=== PATIENT | male | born 1950 | race Caucasian/White ===

== ENCOUNTER 2016-09-16 07:33 | Day surgery (SDC) | payer MEDICARE, OTHER ==
[2016-09-13 14:59] LABS: BUN (BLOOD UREA NITROGEN) 6 MG/DL (6-23); CALCIUM, SERUM 8.9 MG/DL (8.5-10.4); CHLORIDE, SERUM 106 MMOL/L (96-112); CO2 (CARBON DIOXIDE) 31 MMOL/L (24-34); CREATININE 0.78 MG/DL (0.70-1.30); GFR AFRICAN AMERICAN 111 ML/MIN (>=60); GFR NON AFRICAN AMERICAN 96 ML/MIN (>=60); GLUCOSE, SERUM 87 MG/DL (60-99); POTASSIUM, SERUM 3.6 MMOL/L (3.5-5.3); SODIUM, SERUM 142 MMOL/L (135-148)
[2016-09-13 18:20] LABS: HEMATOCRIT 38.6 % (40.0-51.0); HEMOGLOBIN 12.4 g/dL (13.6-17.8)
--- NOTE | ~2016-09-16 | OP ---
Record Of Operation [facility] [address] [place]. [address] NAME: LAURA ALDANA : 54 STATUS : REG [facility]#: [id number] AGE: 65 ADM/REG DATE : 09/16/16 MR#: [id number] REPORT SERV DATE: 09/16/16 DICTATED BY: BENNY JOSEPH DATE: 09/16/16 REPORT STATUS : Draft TRANSCRIBED BY: MODL DATE: 09/16/16 DATE OF PROCEDURE: 09/16/2016 PREOPERATIVE DIAGNOSIS: Epilepsy. POSTOPERATIVE DIAGNOSIS: Epilepsy. OPERATION: VNS generator change and programming. SUMMARY: After adequate general anesthesia, prep and drape, an incision was made directly over the old incision on the left upper chest and carried down through the skin and subcutaneous tissue. The old generator was dissected free carefully from the surrounding tissue and removed from the incision. The leads appeared intact. The generator was then disconnected and the new generator was connected with three clicks. The pocket was enlarged because this was a larger generator. Small portion of the old sac around the VNS was removed. The VNS was then interrogated successfully to 1 milliampere impedance was okay. It was then placed back in the pouch and again interrogated successfully and impedance was okay in 1 milliamp. This was then turned off to 0. After adequate irrigation, the generator was sutured to the anterior chest wall with 2-0 Prolene suture. Subcutaneous tissue and skin was closed in routine fashion after injection of 0.5% Marcaine without. The patient tolerated procedure well and taken to recovery room in satisfactory condition. AMENA/ODESSA Benny Joseph M.D. / [id number] CC: Benny Joseph M.D.
[~2016-09-16 07:33] MED LIST: ADVAIR100 INH; ADVAIR250 INH; BISR PR; DEPAKOT500 PO; DSS PO; DUONEB INH; FLONASE NAS; FOLIC PO; KEPPRA1000 MG PO; KEPPRA500 PO; KLONO1 PO; KLONO5 PO; LEVAQUIN750 MG PO; MIRALAXPKT PO; MULTIPLE VIT PO; MULTIVIT/MIN PO; ORGAN-I NR200 MG PO; OS500 PO; PRILO PO; PROAIR HFA INH; PROTONIX PO; RISP0.5 PO; RISPERDAL0.25 MG PO; SPIRIVA INH; STERAPRED DS10 MG; TRICOR145 PO; TRILEP300 PO; VIMPAT100 MG PO; VIMPAT200 MG PO
== END 2016-09-16 12:16 | disposition home or self-care (01) ==
LOC: SDC 07:33
PROVIDERS: Specialist
PROC: 0JWT0MZ Revision of Stimulator Generator in Trunk Subcutaneous Tissue and Fascia, Open Approach (ICD-10-PCS; principal; 2016-09-16 08:45)
DX: G40.909 Epilepsy, unspecified, not intractable, without status epilepticus (principal); F17.210 Nicotine dependence, cigarettes, uncomplicated; J44.9 Chronic obstructive pulmonary disease, unspecified; G47.33 Obstructive sleep apnea (adult) (pediatric); Z99.89 Dependence on other enabling machines and devices; Z88.8 Allergy status to other drugs, medicaments and biological substances
CPT/HCPCS: 80048; 85014; 85018; 88300; 93005; C1767; J0690; J2250; J2405; J3010